=== PATIENT | female | born 1980 | race Caucasian/White ===

== ENCOUNTER → 2024-06-18 14:02 | Outpatient (REF) | payer BC, SELFPAY | LOC: HWWDC 14:02 | PROVIDERS: ATTENDING PHYSICIAN Internal Medicine | DX: Z12.31 Encounter for screening mammogram for malignant neoplasm of breast (principal) | CPT/HCPCS: 77063; 77067 ==

== ENCOUNTER → 2025-05-11 12:28 | Outpatient (REF) | payer BC, SELFPAY | LOC: HWRAD 12:28 | PROVIDERS: ATTENDING PHYSICIAN Student in an Organized Health Care Education/Training Program; FAMILY PHYSICIAN Nurse Practitioner Adult Health | DX: R10.2 Pelvic and perineal pain (principal) | CPT/HCPCS: 76830; 76856 ==

== ENCOUNTER → 2025-08-04 13:42 | Outpatient (REF) | payer BC, SELFPAY | LOC: HWWDC 13:42 | PROVIDERS: ATTENDING PHYSICIAN Nurse Practitioner Adult Health; REFERRING PHYSICIAN Obstetrics & Gynecology | DX: Z12.31 Encounter for screening mammogram for malignant neoplasm of breast (principal) | CPT/HCPCS: 77063; 77067 ==

== ENCOUNTER → 2025-08-06 13:51 | Outpatient (REF) | payer BC, SELFPAY | LOC: HWRAD 13:51 | PROVIDERS: ATTENDING PHYSICIAN Obstetrics & Gynecology; FAMILY PHYSICIAN Internal Medicine | DX: N93.9 Abnormal uterine and vaginal bleeding, unspecified (principal) | CPT/HCPCS: 76830; 76856 ==